=== PATIENT | female | born 1985 | race Two or more races ===

== ENCOUNTER 2023-01-08 20:30 | Emergency (ER) | payer BC, MEDICAID ==
[~2023-01-08] VITALS: Ht 175.3 cm; Wt 75.0 kg
[2023-01-08] MEDS ORDERED: KETOROLAC TROMETH 60MG/2ML VIAL IM ONE (21:15)
[2023-01-08] MEDS ORDERED: cefTRIAXone SOD 1,000 MG VL IM ONE (21:15)
[2023-01-08] MEDS ORDERED: HYDROcodone-ACET 5/325MG TAB PO ONE (21:15)
[2023-01-08] MEDS ORDERED: ONDANSETRON ODT 4 MG TAB PO ONE (21:15)
[2023-01-08] MEDS ORDERED: NITR-87 PO (21:17)
[2023-01-08] MEDS ORDERED: HYDR-4798 PO (21:17)
[2023-01-08] MEDS ORDERED: ONDA-144 PO (21:17)
[2023-01-08 21:31] VITALS: BP 103/76
[2023-01-09] MEDS ORDERED: PHEN-1044 PO (06:27)
== END 2023-01-08 21:34 | disposition home or self-care (01) ==
LOC: EEVIPCON 20:30 → ER 20:30
DX: N39.0 Urinary tract infection, site not specified (principal)
CPT/HCPCS: 96372; 99284; J0696; J1885; Q0162

== ENCOUNTER → 2023-05-07 | Outpatient (CLI) | payer BC, MEDICAID ==
[~2023-05-07] MED LIST: AMOX875T4 PO; HYDR-4798 PO; NITR-87 PO; ONDA-144 PO; PHEN-1044 PO; PRED20TA2 PO; PROM1SOL4 PO
[2023-05-07 12:41] LABS: Follicle Stimulating Hormone 7.52 IU/L (SEE BELOW)
[2023-05-07 12:47] LABS: Leuteinizing Hormone 8.4 IU/L
== END | disposition home or self-care (01) ==
LOC: LAB 11:18
PROVIDERS: ATTEND Obstetrics & Gynecology
DX: N91.2 Amenorrhea, unspecified (principal)
CPT/HCPCS: 36415; 82670; 83001; 83002; 84403

== ENCOUNTER 2023-09-17 21:37 | Emergency (ER) | payer BC, MEDICAID ==
[~2023-09-17] VITALS: Ht 175.3 cm; Wt 75.0 kg
[~2023-09-17 21:37] MED LIST changes: +DIA5T PO
[2023-09-17 21:41] VITALS: BP 107/62; PULSE 71; RESP 16; O2SAT 100
[2023-09-17] MEDS ORDERED: LISD70CA PO ×2 (22:00)
[2023-09-18] MEDS ORDERED: LISD70CA PO (15:05)
== END 2023-09-17 22:12 | disposition home or self-care (01) ==
LOC: ER 21:37 → EEVIPCON 21:37 → ER 22:09
DX: Z76.0 Encounter for issue of repeat prescription (principal); Z79.899 Other long term (current) drug therapy

== ENCOUNTER 2023-10-28 00:43 | Emergency (ER) | payer BC ==
[~2023-10-28] VITALS: Ht 175.3 cm; Wt 75.0 kg
[~2023-10-28 00:43] MED LIST changes: +LISD70CA PO
[2023-10-28 00:49] VITALS: BP 107/62; PULSE 62; RESP 16; TEMP 98.9; O2SAT 99
[2023-10-28] MEDS ORDERED: LISD70CA PO (00:54)
== END 2023-10-28 00:59 | disposition home or self-care (01) ==
LOC: EEVIPCON 00:43 → ER 00:43
DX: F90.9 Attention-deficit hyperactivity disorder, unspecified type (principal); Z76.0 Encounter for issue of repeat prescription